=== PATIENT | female | born 2000 | race Caucasian/White ===

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

== ENCOUNTER 2020-08-23 18:11 | Inpatient (IN) | payer BC, OTHER ==
[~2020-08-23] VITALS: Ht 160 cm; Wt 58.9 kg
[2020-08-23] MEDS ORDERED: TOPI25TA10 (18:25)
[2020-08-23] MEDS ORDERED: SERT25TA21 (18:25)
[2020-08-23 20:46] LABS: HEMATOCRIT 38.4 % (36.0-47.0); HEMOGLOBIN 12.1 g/dl (12.0-15.5); MEAN CORPUSCULAR HEMOGLOBIN 25.5 pg (27.0-33.0); MEAN CORPUSCULAR HGB CONC 31.5 g/dl (32.0-36.5); PLATELET COUNT, AUTOMATED 186 10^3/uL (150-450); RED BLOOD COUNT 4.74 10^6/uL (4.00-5.40); WHITE BLOOD COUNT 6.5 10^3/uL (4.0-10.0)
[2020-08-23 21:12] LABS: HCG, SERUM QUALITATIVE NEGATIVE (NEGATIVE)
[2020-08-23 21:15] LABS: AMPHETAMINES LEVEL URINE NEGATIVE (NEGATIVE); BARBITURATES URINE NEGATIVE (NEGATIVE); BENZODIAZEPINES URINE NEGATIVE (NEGATIVE); CANNABINOIDS URINE POSITIVE (NEGATIVE); COCAINE METABOLITE URINE NEGATIVE (NEGATIVE); METHADONE URINE NEGATIVE (NEGATIVE); OPIATES URINE NEGATIVE (NEGATIVE); PHENCYCLIDINE URINE NEGATIVE (NEGATIVE)
[2020-08-23 21:18] LABS: ACETAMINOPHEN LEVEL < 2.0 UG/ML (10.0-30.0); ALBUMIN 3.8 GM/DL (3.2-5.2); ALT/SGPT 13 U/L (12-78); BILIRUBIN,DIRECT < 0.1 MG/DL (0.0-0.2); BILIRUBIN,TOTAL 0.3 MG/DL (0.2-1.0); BLOOD UREA NITROGEN 8 MG/DL (7-18); CARBON DIOXIDE LEVEL 22 MEQ/L (21-32); CHLORIDE LEVEL 113 MEQ/L (98-107); ETHYL ALCOHOL (ETHANOL) < 0.003 % (0.000-0.010); GLOMERULAR FILTRATION RATE > 60.0 (>60); GLUCOSE, FASTING 82 MG/DL (70-100); SODIUM LEVEL 141 MEQ/L (136-145); THYROID STIMULATING HORMONE 0.877 uIU/ML (0.358-3.740); TOTAL PROTEIN 6.8 GM/DL (6.4-8.2)
[2020-08-23] MEDS ORDERED: SERT25TA21 PO (22:03)
[2020-08-23] MEDS ORDERED: TOPI25TA10 PO (22:03)
[2020-08-23] MEDS ORDERED: TOPIRAMATE (TopAMAX) 25 MG TAB PO ONE (22:15)
--- NOTE | 2020-08-24 07:17 | ECGEPIP ---
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
[2020-08-24] MEDS ORDERED: SERTRALINE HCL 25 MG TABLET PO ONE (09:00)
[2020-08-24] MEDS ORDERED: LORazepam 1 MG TAB PO PRN (15:30)
[2020-08-24] MEDS ORDERED: MOM 30ML SUSPENSION UDC PO PRN (15:30)
[2020-08-24] MEDS ORDERED: MAALOX 30 ML SUSP *UDC PO PRN (15:30)
[2020-08-24 16:45] VITALS: BP 109/66
[2020-08-24] MEDS: TOPIRAMATE (TopAMAX) 25 MG TAB PO SCH (20:50)
[2020-08-24] MEDS ORDERED: TOPIRAMATE (TopAMAX) 25 MG TAB PO ONE (21:00)
[2020-08-25 06:32] VITALS: BP 127/66
[2020-08-25] MEDS: busPIRone 5 MG TAB PO SCH ×2 (09:00→20:02)
[2020-08-25] MEDS: IBUPROFEN 400 MG TAB PO PRN (09:01)
[2020-08-25] MEDS: SERTRALINE HCL 25 MG TABLET PO SCH (09:01)
--- NOTE | 2020-08-25 10:27 | HPEPDOC ---
[facility] Medical History & Physical Date of Admission Aug 24, 2020 Date of Service: Aug 25, 2020 History and Physical CHIEF COMPLAINT: Medical H&P for [facility] patient HISTORY OF PRESENT ILLNESS: 20 yo female admitted to [facility] for suicidal ideation, hospitalist consulted for medical co-management. PAST MEDICAL HISTORY: #depression ALLERGIES: Please see below. REVIEW OF SYSTEMS: Negative except as per HPI. HOME MEDICATIONS: Please see below. PHYSICAL EXAMINATION: VITAL SIGNS: See below GENERAL APPEARANCE: NAD, sitting comfortably in chair HEENT: NC/AT, EOMI CARDIOVASCULAR: +S1S2, RRR LUNGS: CTA B/L ABDOMEN: soft, NT, +BS PSYCHIATRIC: AAOx3 LABORATORY DATA: See below. MICROBIOLOGY: Please see below. A/P: 20-year-old female admitted to inpatient mental health unit for suicidal ideation, hospitalist consulted for medical comanagement. #psych/SI - as per primary team Thank you for this consultation. Please re-consult as needed. Vital Signs Vital Signs Date Time Temp Pulse Resp B/P (MAP) Pulse Ox O2 Delivery O2 Flow Rate FiO2 08/25/20 06:32 98.8 90 16 127/66 (86) 08/24/20 16:45 99 Room Air Home Medications Scheduled Sertraline HCl (Sertraline HCl) 25 Mg Tablet, 75 MG PO DAILY Topiramate (Topiramate) 25 Mg Tablet, 25 MG PO QHS Allergies Coded Allergies: No Known Allergies (Unverified , 08/23/20) A-FIB/CHADSVASC A-FIB History Current/History of A-Fib/PAF?: No GILL RODRÍGUEZ MD Aug 25, 2020 10:27
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
[2020-08-25] MEDS: ARIPiprazole 2 MG TAB PO SCH (20:02)
[2020-08-25] MEDS: TOPIRAMATE (TopAMAX) 25 MG TAB PO SCH (20:02)
[2020-08-26 07:24] VITALS: BP 104/53
[2020-08-26] MEDS: SERTRALINE HCL 25 MG TABLET PO SCH (09:22)
[2020-08-26] MEDS: busPIRone 5 MG TAB PO SCH ×2 (09:22→20:51)
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
[2020-08-26 16:10] VITALS: BP 133/75
[2020-08-26] MEDS: TOPIRAMATE (TopAMAX) 25 MG TAB PO SCH (20:50)
[2020-08-26] MEDS: ARIPiprazole 2 MG TAB PO SCH (20:51)
[2020-08-26] MEDS: traZODone 50 MG TAB PO PRN (22:20)
[2020-08-27 06:30] VITALS: BP 136/73
[2020-08-27] MEDS: SERTRALINE HCL 25 MG TABLET PO SCH (08:19)
[2020-08-27] MEDS: busPIRone 5 MG TAB PO SCH ×2 (08:20→21:09)
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
[2020-08-27 16:30] VITALS: BP 114/66
[2020-08-27] MEDS: ARIPiprazole 2 MG TAB PO SCH (21:10)
[2020-08-27] MEDS: TOPIRAMATE (TopAMAX) 25 MG TAB PO SCH (21:10)
[2020-08-28 06:29] VITALS: BP 120/61
[2020-08-28] MEDS: busPIRone 5 MG TAB PO SCH ×2 (09:03→20:36)
[2020-08-28] MEDS: SERTRALINE HCL 25 MG TABLET PO SCH (09:04)
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
[2020-08-28 17:09] VITALS: BP 139/67
[2020-08-28] MEDS: TOPIRAMATE (TopAMAX) 25 MG TAB PO SCH (20:36)
[2020-08-28] MEDS: ARIPiprazole 2 MG TAB PO SCH (20:36)
[2020-08-28] MEDS: traZODone 50 MG TAB PO PRN (22:28)
[2020-08-29 06:50] VITALS: BP 104/59
[2020-08-29] MEDS: busPIRone 5 MG TAB PO SCH ×2 (09:03→20:29)
[2020-08-29] MEDS: SERTRALINE HCL 25 MG TABLET PO SCH (09:03)
[2020-08-29] MEDS: IBUPROFEN 400 MG TAB PO PRN (09:35)
[2020-08-29] MEDS ORDERED: ABIL1TAB13 PO (12:34)
[2020-08-29] MEDS ORDERED: BUSP5TA PO (12:34)
[2020-08-29] MEDS ORDERED: TRAZ-252 PO (12:34)
[2020-08-29] MEDS ORDERED: SERT25TA21 PO (12:34)
[2020-08-29] MEDS ORDERED: TOPI25TA10 PO (12:34)
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
[2020-08-29 17:31] VITALS: BP 122/77
[2020-08-29] MEDS: TOPIRAMATE (TopAMAX) 25 MG TAB PO SCH (20:29)
[2020-08-29] MEDS: ARIPiprazole 2 MG TAB PO SCH (20:29)
[2020-08-29] MEDS: traZODone 50 MG TAB PO PRN (21:08)
[2020-08-30 06:27] VITALS: BP 112/55
[2020-08-30] MEDS: SERTRALINE HCL 25 MG TABLET PO SCH (08:30)
[2020-08-30] MEDS: busPIRone 5 MG TAB PO SCH (08:30)
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
== END 2020-08-30 11:00 | disposition home or self-care (01) | DRG 885 ==
LOC: M ED 18:11 → M ED INP 08-24 15:22 → M PSY 08-24 16:39
PROVIDERS: ADMIT Psychiatry & Neurology Psychiatry; ATTEND Psychiatry & Neurology Psychiatry
DX: F32.1 Major depressive disorder, single episode, moderate (principal); F43.10 Post-traumatic stress disorder, unspecified; F41.9 Anxiety disorder, unspecified; F17.210 Nicotine dependence, cigarettes, uncomplicated; F12.10 Cannabis abuse, uncomplicated; Z91.410 Personal history of adult physical and sexual abuse; Z63.79 Other stressful life events affecting family and household

== ENCOUNTER 2020-09-21 19:18 | Emergency (ER) | payer OTHER ==
[~2020-09-21] VITALS: Ht 160 cm; Wt 59.1 kg
[2020-09-21 19:18] VITALS: BP 106/57
[~2020-09-21 19:18] MED LIST: ABIL1TAB13 PO; BUSP5TA PO; SERT25TA21; SERT25TA21 PO; TOPI25TA10; TOPI25TA10 PO; TRAZ-252 PO
[2020-09-21] MEDS ORDERED: NS 1,000 ML IV ONE (21:00)
[2020-09-21] MEDS ORDERED: ONDANSETRON 4MG/2ML VIAL IV ONE (21:00)
[2020-09-21] MEDS ORDERED: MORPHINE 2 MG/ML 1ML VIAL (J2270) IV ONE (21:00)
[2020-09-21 21:03] LABS: BASO % 0.3 % (0.0-1.0); HEMATOCRIT 37.2 % (36.0-47.0); HEMOGLOBIN 11.8 g/dl (12.0-15.5); LYMPH # 1.3 10^3/uL (1.5-5.0); MEAN CORPUSCULAR HEMOGLOBIN 25.6 pg (27.0-33.0); MEAN CORPUSCULAR HGB CONC 31.7 g/dl (32.0-36.5); MEAN CORPUSCULAR VOLUME 80.7 fl (80.0-96.0); MONO # 0.6 10^3/uL (0.0-0.8); MONO % 8.3 % (0.0-5.0); NEUTROPHILS # 5.6 10^3/uL (1.5-8.5); NEUTROPHILS % 74.1 % (36.0-66.0); PLATELET COUNT, AUTOMATED 155 10^3/uL (150-450); RED BLOOD COUNT 4.61 10^6/uL (4.00-5.40); WHITE BLOOD COUNT 7.5 10^3/uL (4.0-10.0)
[2020-09-21 21:41] LABS: ALBUMIN 3.7 GM/DL (3.2-5.2); BILIRUBIN,DIRECT 0.1 MG/DL (0.0-0.2); BILIRUBIN,TOTAL 0.4 MG/DL (0.2-1.0); TOTAL PROTEIN 6.9 GM/DL (6.4-8.2)
[2020-09-21] MEDS ORDERED: ISOVUE-370 76% 100ML VIAL As Ordered ONE (22:20)
--- NOTE | 2020-09-21 23:34 | REPVR ---
PROCEDURE INFORMATION: Exam: CT Abdomen And Pelvis With Contrast Exam date and time: 09/21/2020 11:03 PM Age: 20 years old Clinical indication: Abdominal pain; Localized; Right lower quadrant (rlq); Additional info: Rlq pain R/O appendicitis TECHNIQUE: Imaging protocol: Computed tomography of the abdomen and pelvis with intravenous contrast. Axial, coronal and sagittal reformatted images were created and reviewed. Radiation optimization: All CT scans at this facility use at least one of these dose optimization techniques: automated exposure control; mA and/or kV adjustment per patient size (includes targeted exams where dose is matched to clinical indication); or iterative reconstruction. Contrast material: ISOVUE 370; Contrast volume: 100 ml; Contrast route: INTRAVENOUS (IV); COMPARISON: CT ABD PELVIS W/O CONTRAST 12/02/2016 4:56 AM FINDINGS: Liver: Unremarkable. Gallbladder and bile ducts: No radiodense gallstones. No biliary ductal dilatation. Pancreas: Unremarkable. Spleen: Unremarkable. Adrenal glands: Normal. No mass. Kidneys and ureters: Right urothelial thickening and enhancement with associated periureteral edema. No radiodense calculi. No hydronephrosis. Stomach and bowel: No bowel wall thickening. No obstruction. No pneumatosis. Appendix: Normal. Intraperitoneal space: Small nonspecific free pelvic fluid, likely physiologic. No organized fluid collection. No free air. Vasculature: Unremarkable. No aneurysm. Lymph nodes: No pathologically enlarged lymph nodes. Urinary bladder: Unremarkable as visualized. Reproductive: Probable involuting right ovarian corpus luteal cyst. Bones/joints: No acute osseous abnormality. Soft tissues: Small, fat containing supraumbilical hernia. IMPRESSION: 1. Findings suggestive of ascending right urinary tract infection, as described above. Correlate with urinalysis. 2. Additional findings, as above. Electronically signed by: Maxx Hogue On 09/21/2020 23:33:54 PM
[2020-09-21] MEDS ORDERED: PHENAZOPYRIDINE 100 MG TAB PO ONE (23:45)
[2020-09-21] MEDS ORDERED: CEPHALEXIN 500 MG CAP PO ONE (23:45)
[2020-09-21] MEDS ORDERED: PYRI1TAB5 PO (23:46)
[2020-09-21] MEDS ORDERED: KEFL500C17 PO (23:46)
== END 2020-09-22 00:04 | disposition home or self-care (01) ==
LOC: M ED 19:18
DX: N39.0 Urinary tract infection, site not specified (principal); F43.10 Post-traumatic stress disorder, unspecified; F32.9 Major depressive disorder, single episode, unspecified; F41.9 Anxiety disorder, unspecified; F17.200 Nicotine dependence, unspecified, uncomplicated; Z79.899 Other long term (current) drug therapy
CPT/HCPCS: 74177; 80047; 80076; 81001; 83690; 85025; 87088; 87186; 96361; 96374; 96375; 99283; J2270; J2405; Q9967

== ENCOUNTER 2020-09-22 15:58 | Emergency (ER) | payer BC, OTHER ==
[~2020-09-22] VITALS: Ht 160 cm; Wt 60.1 kg
[~2020-09-22 15:58] MED LIST changes: +KEFL500C17 PO; +PYRI1TAB5 PO
[2020-09-22] MEDS ORDERED: NS 1,000 ML IV ONE (17:15)
--- NOTE | 2020-09-22 17:47 | REPVR ---
PROCEDURE INFORMATION: Exam: US Retroperitoneal Limited, Kidneys Exam date and time: 09/22/2020 5:40 PM Age: 20 years old Clinical indication: Pain; Other: Flank; Additional info: Right sided flank pain TECHNIQUE: Imaging protocol: Real-time ultrasound of the retroperitoneum with image documentation. Examination was focused on the kidneys. COMPARISON: CT ABD/PEL W/IV CONTRAST ONLY 09/21/2020 10:53 PM FINDINGS: Right kidney: The right kidney measures 11.8 cm in length. Normal echogenicity. Minimal right-sided pelviectasis. No definite hydronephrosis. No nephrolithiasis. Left kidney: The left kidney measures 11 cm in length. Normal echogenicity. No hydronephrosis or stones. Bladder: Decompressed and unremarkable. IMPRESSION: Nonspecific minimal right pelviectasis. No sonographic evidence of nephrolithiasis. Please refer to CT abdomen pelvis performed on 09/21/2020 for additional findings. Electronically signed by: Cj Bradley On 09/22/2020 17:47:05 PM
[2020-09-22 18:14] LABS: BASO % 0.2 % (0.0-1.0); EOS % 0.7 % (0.0-3.0); HEMATOCRIT 36.7 % (36.0-47.0); HEMOGLOBIN 11.5 g/dl (12.0-15.5); LYMPH # 1.7 10^3/uL (1.5-5.0); LYMPH % 29.7 % (24.0-44.0); MEAN CORPUSCULAR HEMOGLOBIN 25.7 pg (27.0-33.0); MEAN CORPUSCULAR HGB CONC 31.3 g/dl (32.0-36.5); MEAN CORPUSCULAR VOLUME 82.1 fl (80.0-96.0); MONO # 0.5 10^3/uL (0.0-0.8); NEUTROPHILS # 3.4 10^3/uL (1.5-8.5); NEUTROPHILS % 60.2 % (36.0-66.0); PLATELET COUNT, AUTOMATED 154 10^3/uL (150-450); RED BLOOD COUNT 4.47 10^6/uL (4.00-5.40); WHITE BLOOD COUNT 5.7 10^3/uL (4.0-10.0)
[2020-09-22 18:44] LABS: ALBUMIN 3.5 GM/DL (3.2-5.2); ALT/SGPT 11 U/L (12-78); BILIRUBIN,DIRECT < 0.1 MG/DL (0.0-0.2); BILIRUBIN,TOTAL 0.3 MG/DL (0.2-1.0); BLOOD UREA NITROGEN 10 MG/DL (7-18); CALCIUM LEVEL 8.8 MG/DL (8.5-10.1); CARBON DIOXIDE LEVEL 23 MEQ/L (21-32); CHLORIDE LEVEL 111 MEQ/L (98-107); CREATININE FOR GFR 0.68 MG/DL (0.55-1.30); GLOMERULAR FILTRATION RATE > 60.0 (>60); GLUCOSE, FASTING 85 MG/DL (70-100); LIPASE 139 U/L (73-393); POTASSIUM SERUM 3.8 MEQ/L (3.5-5.1); SODIUM LEVEL 142 MEQ/L (136-145); TOTAL PROTEIN 6.6 GM/DL (6.4-8.2)
[2020-09-22] MEDS ORDERED: ONDANSETRON 4MG/2ML VIAL IV ONE (18:45)
[2020-09-22] MEDS ORDERED: MORPHINE 2 MG/ML 1ML VIAL (J2270) IV ONE (18:45)
[2020-09-22 19:31] VITALS: BP 133/71
== END 2020-09-22 20:35 | disposition home or self-care (01) ==
LOC: M ED 15:58
DX: N30.00 Acute cystitis without hematuria (principal); F41.9 Anxiety disorder, unspecified; F32.9 Major depressive disorder, single episode, unspecified; F43.10 Post-traumatic stress disorder, unspecified; Z87.448 Personal history of other diseases of urinary system; F17.200 Nicotine dependence, unspecified, uncomplicated; Z79.899 Other long term (current) drug therapy
CPT/HCPCS: 76775; 80048; 80076; 81001; 83605; 83690; 85025; 87040; 87086; 96361; 96374; 96375; 99284; J2270; J2405

== ENCOUNTER → 2020-10-10 | Outpatient (REF) | payer BC, OTHER ==
[2020-10-10 12:33] LABS: BASO % 0.4 % (0.0-1.0); EOS % 0.2 % (0.0-3.0); HEMATOCRIT 38.2 % (36.0-47.0); HEMOGLOBIN 11.8 g/dl (12.0-15.5); LYMPH # 1.9 10^3/uL (1.5-5.0); LYMPH % 40.4 % (24.0-44.0); MEAN CORPUSCULAR HEMOGLOBIN 25.1 pg (27.0-33.0); MEAN CORPUSCULAR HGB CONC 30.9 g/dl (32.0-36.5); MEAN CORPUSCULAR VOLUME 81.3 fl (80.0-96.0); MONO # 0.5 10^3/uL (0.0-0.8); MONO % 10.4 % (0.0-5.0); NEUTROPHILS # 2.3 10^3/uL (1.5-8.5); NEUTROPHILS % 48.4 % (36.0-66.0); PLATELET COUNT, AUTOMATED 188 10^3/uL (150-450); WHITE BLOOD COUNT 4.7 10^3/uL (4.0-10.0)
[2020-10-10 13:06] LABS: ALBUMIN 3.7 GM/DL (3.2-5.2); ALT/SGPT 13 U/L (12-78); BILIRUBIN,TOTAL 0.3 MG/DL (0.2-1.0); BLOOD UREA NITROGEN 13 MG/DL (7-18); CALCIUM LEVEL 9.1 MG/DL (8.5-10.1); CARBON DIOXIDE LEVEL 27 MEQ/L (21-32); CHLORIDE LEVEL 111 MEQ/L (98-107); CHOLESTEROL LEVEL 157 MG/DL (<200); CHOLESTEROL RISK RATIO 3.738 (<5); CREATININE FOR GFR 0.74 MG/DL (0.55-1.30); FREE T4 1.03 NG/DL (0.76-1.46); GLOMERULAR FILTRATION RATE > 60.0 (>60); GLUCOSE, FASTING 81 MG/DL (70-100); HDL CHOLESTEROL 42 MG/DL (>40); LDL CHOLESTEROL 99 MG/DL (<100); NON-HDL-C 115 MG/DL; SODIUM LEVEL 141 MEQ/L (136-145); THYROID STIMULATING HORMONE 0.563 uIU/ML (0.358-3.740); TOTAL PROTEIN 6.9 GM/DL (6.4-8.2); TRIGLYCERIDES LEVEL 80 MG/DL (<150)
[2020-10-10 13:08] LABS: TOTAL 25(OH) VITAMIN D 29.9 NG/ML (30.0-100.0)
== END ==
LOC: M LAB REF 12:01
PROVIDERS: ATTEND Nurse Practitioner Family
DX: Z00.00 Encounter for general adult medical examination without abnormal findings (principal)

== ENCOUNTER 2020-10-17 11:27 | Emergency (ER) | payer BC, OTHER ==
[~2020-10-17] VITALS: Ht 160 cm; Wt 59.4 kg
[~2020-10-17 11:27] MED LIST changes: -CVS1CAP2 PO; -SERT25TA85 PO
[2020-10-17] MEDS ORDERED: CVS1CAP2 PO (11:45)
[2020-10-17] MEDS ORDERED: SERT25TA85 PO (12:23)
[2020-10-17] MEDS ORDERED: ABIL1TAB13 PO (12:23)
[2020-10-17] MEDS ORDERED: TRAZ-252 PO (12:23)
[2020-10-17] MEDS ORDERED: BUSP5TA PO (12:23)
[2020-10-17 12:30] VITALS: BP 108/59
== END 2020-10-17 12:53 | disposition home or self-care (01) ==
LOC: M ED 11:27
DX: Z76.0 Encounter for issue of repeat prescription (principal); F41.9 Anxiety disorder, unspecified; F32.9 Major depressive disorder, single episode, unspecified; F43.10 Post-traumatic stress disorder, unspecified; F17.200 Nicotine dependence, unspecified, uncomplicated; Z79.899 Other long term (current) drug therapy

== ENCOUNTER → 2020-10-17 | Outpatient (REF) | payer BC, OTHER ==
[~2020-10-17] MED LIST changes: +CVS1CAP2 PO; +SERT25TA85 PO
[2020-10-17 19:02] LABS: APPEARANCE, URINE HAZY (CLEAR); BACTERIA, URINE AUTO NEGATIVE (NEGATIVE); BILIRUBIN, URINE AUTO NEGATIVE (NEGATIVE); BLOOD, URINE BLOOD NEGATIVE (NEGATIVE); COLOR, URINE YELLOW (YELLOW); GLUCOSE, URINE (UA) AUTO NEGATIVE (NEGATIVE); KETONE, URINE AUTO NEGATIVE (NEGATIVE); LEUKOCYTE ESTERASE, URINE AUTO NEGATIVE (NEGATIVE); MUCUS, URINE MODERATE (NEGATIVE); NITRITE, URINE AUTO NEGATIVE (NEGATIVE); PROTEIN, URINE AUTO NEGATIVE (NEGATIVE); RBC, URINE AUTO 1 /HPF (0-3); SPECIFIC GRAVITY URINE AUTO 1.023 (1.002-1.035); SQUAMOUS EPITHELIAL CELL UR AU 13 /HPF (0-6); UROBILINOGEN, URINE AUTO 0.2 mg/dL (0.0-2.0); WBC, URINE AUTO 1 /HPF (0-3)
== END ==
LOC: M LAB REF 16:40
PROVIDERS: ATTEND Nurse Practitioner Family
DX: R30.9 Painful micturition, unspecified (principal)

== ENCOUNTER 2021-03-06 15:25 | Emergency (ER) | payer BC, OTHER ==
[~2021-03-06] VITALS: Ht 160 cm; Wt 65.8 kg
[~2021-03-06 15:25] MED LIST changes: +CVS1CAP2 PO; +SERT25TA85 PO
[2021-03-06] MEDS ORDERED: NS 1,000 ML IV ONE (17:15)
[2021-03-06] MEDS ORDERED: ONDANSETRON 4MG/2ML VIAL IV ONE (17:15)
[2021-03-06] MEDS ORDERED: DICYCLOMINE 10 MG CAP PO ONE (17:15)
[2021-03-06] MEDS ORDERED: KETOROLAC 30 MG/ML 1ML VIAL IV ONE (17:15)
[2021-03-06] MEDS ORDERED: TRAZ-189 (18:05)
[2021-03-06] MEDS ORDERED: DULO1CAP6 (18:05)
[2021-03-06] MEDS ORDERED: ARIP1TAB2 (18:05)
[2021-03-06] MEDS ORDERED: PREG50CA2 (18:05)
[2021-03-06] MEDS ORDERED: MELO15TA28 (18:05)
[2021-03-06 18:13] LABS: BASO % 0.3 % (0.0-1.0); EOS # 0.1 10^3/uL (0.0-0.5); EOS % 0.9 % (0.0-3.0); HEMATOCRIT 38.8 % (36.0-47.0); HEMOGLOBIN 12.5 g/dl (12.0-15.5); LYMPH # 2.2 10^3/uL (1.5-5.0); LYMPH % 38.3 % (24.0-44.0); MEAN CORPUSCULAR HEMOGLOBIN 26.5 pg (27.0-33.0); MEAN CORPUSCULAR HGB CONC 32.2 g/dl (32.0-36.5); MEAN CORPUSCULAR VOLUME 82.4 fl (80.0-96.0); MONO # 0.4 10^3/uL (0.0-0.8); MONO % 6.8 % (2.0-8.0); NEUTROPHILS # 3.1 10^3/uL (1.5-8.5); NEUTROPHILS % 53.4 % (36.0-66.0); PLATELET COUNT, AUTOMATED 186 10^3/uL (150-450); RED BLOOD COUNT 4.71 10^6/uL (4.00-5.40); WHITE BLOOD COUNT 5.7 10^3/uL (4.0-10.0)
[2021-03-06 18:37] LABS: ALBUMIN 4.2 GM/DL (3.2-5.2); BILIRUBIN,DIRECT 0.1 MG/DL (0.0-0.2); BILIRUBIN,TOTAL 0.4 MG/DL (0.2-1.0); TOTAL PROTEIN 7.3 GM/DL (6.4-8.2)
--- NOTE | 2021-03-06 19:07 | REP ---
INDICATION: NVD, V all PO. COMPARISON: None. TECHNIQUE: Supine and erect views of the abdomen, frontal view chest. FINDINGS: There is no free air or obstruction. No significantly dilated bowel loops are seen. There are phleboliths in the pelvis. The visualized osseous structures are unremarkable. No infiltrate is seen in either lung. The heart and mediastinum are within normal limits. IMPRESSION: Negative abdominal series. <Electronically signed by Merritt Flores > 03/06/21 [id number]
[2021-03-06] MEDS ORDERED: METOCLOPRAMIDE INJ 10MG/2ML VIAL (J2765 PER 1) IV ONE (20:00)
[2021-03-06] MEDS ORDERED: PANTOPRAZOLE 40MG TAB (PROTONIX) PO ONE (20:05)
[2021-03-06] MEDS ORDERED: ONDA4TAB6 PO (20:05)
[2021-03-06 20:20] VITALS: BP 105/63
== END 2021-03-06 20:25 | disposition home or self-care (01) ==
LOC: M ED 15:25
DX: R11.2 Nausea with vomiting, unspecified (principal); R19.7 Diarrhea, unspecified; R51.9 Headache, unspecified; D64.9 Anemia, unspecified; F17.200 Nicotine dependence, unspecified, uncomplicated; Z79.899 Other long term (current) drug therapy
CPT/HCPCS: 74021; 80047; 80076; 83690; 84702; 85025; 96361; 96374; 96375; 99284; J1885; J2405; J2765

== ENCOUNTER 2021-03-16 15:26 | Emergency (ER) | payer BC, OTHER ==
[~2021-03-16] VITALS: Ht 160 cm; Wt 64.2 kg
[~2021-03-16 15:26] MED LIST changes: +ARIP1TAB2; +DULO1CAP6; +MELO15TA28; +ONDA4TAB6 PO; +PREG50CA2; +TRAZ-189
[2021-03-16 15:27] VITALS: BP 128/81
[2021-03-16] MEDS ORDERED: GABA-282 (15:43)
[2021-03-16] MEDS ORDERED: SERT25TA21 (15:43)
[2021-03-17] MEDS ORDERED: PANT40TA29 PO (15:05)
[2021-03-17] MEDS ORDERED: CARA1TAB6 PO (15:05)
== END 2021-03-16 18:15 | disposition left against medical advice (07) ==
LOC: M ED 15:26
DX: Z53.21 Procedure and treatment not carried out due to patient leaving prior to being seen by health care provider (principal)

== ENCOUNTER 2021-03-17 10:08 | Emergency (ER) | payer BC, OTHER ==
[~2021-03-17] VITALS: Ht 160 cm; Wt 64.7 kg
[~2021-03-17 10:08] MED LIST changes: +GABA-282
[2021-03-17] MEDS ORDERED: NS 1,000 ML IV ONE (12:10)
[2021-03-17] MEDS ORDERED: PROMETHAZINE INJ 25 MG/ML VIAL (J2550) IV ONE (12:20)
[2021-03-17 13:30] LABS: BASO % 0.4 % (0.0-1.0); EOS % 0.4 % (0.0-3.0); HEMOGLOBIN 13.9 g/dl (12.0-15.5); LYMPH # 2.9 10^3/uL (1.5-5.0); LYMPH % 36.3 % (24.0-44.0); MEAN CORPUSCULAR HEMOGLOBIN 27.1 pg (27.0-33.0); MEAN CORPUSCULAR HGB CONC 32.3 g/dl (32.0-36.5); MONO # 0.5 10^3/uL (0.0-0.8); MONO % 6.3 % (2.0-8.0); NEUTROPHILS # 4.6 10^3/uL (1.5-8.5); NEUTROPHILS % 56.1 % (36.0-66.0); PLATELET COUNT, AUTOMATED 205 10^3/uL (150-450); RED BLOOD COUNT 5.12 10^6/uL (4.00-5.40); WHITE BLOOD COUNT 8.1 10^3/uL (4.0-10.0)
--- NOTE | 2021-03-17 13:46 | REP ---
INDICATION: syncope. COMPARISON: None. TECHNIQUE: Helical scanning is acquired. 5 mm axial images were reformatted. Coronal MPR images were generated. FINDINGS: Bone window settings demonstrate an intact bony calvarium. There is no evidence of skull fracture or incidental bony calvarial lesion. There are mucous retention cysts in the left side of the frontal sinus and in the left side of the sphenoid sinus. The visualized paranasal sinuses appear otherwise clear. No intraorbital abnormality is seen. On soft tissue window setting images; the lateral, third, and fourth ventricles are normal in size and position. Flores-white differentiation pattern is normal above and below the tentorium. There are is no evidence of intracranial hemorrhage. No mass, edema, infarction, or midline shift is seen. No extra-axial fluid collection is appreciated. IMPRESSION: Mucous retention cyst in the left frontal and left sphenoid sinuses. Otherwise normal noncontrast brain CT.. <Electronically signed by Abhishek Watson > 03/17/21 [id number]
--- NOTE | 2021-03-17 13:48 | REP ---
INDICATION: syncope/fall. COMPARISON: None. TECHNIQUE: Helical scanning is acquired and overlapping 2 mm high resolution axial images were generated and reviewed at bone and soft tissue window settings. Coronal and sagittal multiplanar re-formations images are generated. FINDINGS: There is no evidence of cervical spine element fracture. No skull base fracture is seen. Cervical vertebral body heights are preserved. Alignment is normal. Facet joints are normally aligned bilaterally at each cervical level on multiplanar re-formations images. There is no evidence of intraspinal or paraspinal hematoma. No extra vertebral abnormality is seen. There is straightening of the normal cervical lordosis. There is a granulomatous calcification in the right lung apex. IMPRESSION: Negative CT study of the cervical spine without contrast. No fracture seen. <Electronically signed by Abhishek Watson > 03/17/21 [id number]
[2021-03-17 14:01] LABS: ALBUMIN 4.4 GM/DL (3.2-5.2); ALT/SGPT 19 U/L (12-78); BILIRUBIN,TOTAL 0.5 MG/DL (0.2-1.0); BLOOD UREA NITROGEN 21 MG/DL (7-18); CALCIUM LEVEL 10.3 MG/DL (8.5-10.1); CARBON DIOXIDE LEVEL 25 MEQ/L (21-32); CHLORIDE LEVEL 104 MEQ/L (98-107); CREATININE FOR GFR 0.75 MG/DL (0.55-1.30); GLOMERULAR FILTRATION RATE > 60.0 (>60); GLUCOSE, FASTING 74 MG/DL (70-100); POTASSIUM SERUM 3.7 MEQ/L (3.5-5.1); SODIUM LEVEL 137 MEQ/L (136-145); THYROID STIMULATING HORMONE 0.542 uIU/ML (0.358-3.740); TOTAL PROTEIN 7.5 GM/DL (6.4-8.2)
[2021-03-17 14:14] LABS: AMPHETAMINES LEVEL URINE NEGATIVE (NEGATIVE); BARBITURATES URINE NEGATIVE (NEGATIVE); BENZODIAZEPINES URINE NEGATIVE (NEGATIVE); CANNABINOIDS URINE POSITIVE (NEGATIVE); COCAINE METABOLITE URINE NEGATIVE (NEGATIVE); METHADONE URINE NEGATIVE (NEGATIVE); OPIATES URINE NEGATIVE (NEGATIVE); PHENCYCLIDINE URINE NEGATIVE (NEGATIVE)
--- NOTE | 2021-03-17 14:39 | REP ---
INDICATION: Abdominal Pain. COMPARISON: 03/06/2021. TECHNIQUE: Supine and erect views of the abdomen, frontal view chest. FINDINGS: There is no free air or obstruction. No dilated bowel loops are seen. There are multiple phleboliths again seen in the pelvis. The visualized osseous structures are unremarkable. There is no acute infiltrate in either lung. The heart and mediastinum are within normal limits. IMPRESSION: Negative abdominal series. <Electronically signed by Merritt Flores > 03/17/21 [id number]
[2021-03-17] MEDS ORDERED: CARA1TAB6 PO (15:05)
[2021-03-17] MEDS ORDERED: PANT40TA29 PO (15:05)
[2021-03-17 15:48] VITALS: BP 124/70
--- NOTE | 2021-03-17 19:06 | ECGEPIP ---
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
--- NOTE | 2021-03-19 08:37 | ED PDOC ---
Post-Departure Follow-Up radiology reopprt faced to [facility] Deanna Agustin MD March 19, 2021 08:37
== END 2021-03-17 15:50 | disposition home or self-care (01) ==
LOC: M ED 10:08
DX: S09.90XA Unspecified injury of head, initial encounter (principal); W19.XXXA Unspecified fall, initial encounter; Y92.9 Unspecified place or not applicable; Y93.9 Activity, unspecified; Y99.9 Unspecified external cause status; T40.7X1A Poisoning by cannabis (derivatives), accidental (unintentional), initial encounter; R11.2 Nausea with vomiting, unspecified; R55 Syncope and collapse; J34.1 Cyst and mucocele of nose and nasal sinus; R11.15 Cyclical vomiting syndrome unrelated to migraine; D64.9 Anemia, unspecified; F43.10 Post-traumatic stress disorder, unspecified; F41.9 Anxiety disorder, unspecified; F32.9 Major depressive disorder, single episode, unspecified; F17.200 Nicotine dependence, unspecified, uncomplicated; Z79.899 Other long term (current) drug therapy

== ENCOUNTER 2021-06-02 13:36 | Emergency (ER) | payer BC, OTHER ==
[~2021-06-02] VITALS: Ht 162.6 cm; Wt 65.9 kg
[~2021-06-02 13:36] MED LIST changes: -ARIP1TAB2; +ARIP1TAB43; +CARA1TAB6 PO; +PANT40TA29 PO
[2021-06-02] MEDS ORDERED: NS 1,000 ML IV ONE (16:10)
[2021-06-02] MEDS ORDERED: KETOROLAC 30 MG/ML 1ML VIAL IV ONE (16:10)
[2021-06-02] MEDS ORDERED: ONDANSETRON 4MG/2ML VIAL IV ONE (16:10)
--- NOTE | 2021-06-02 17:16 | REP ---
INDICATION: ruq pain. COMPARISON: Comparison CT study abdomen pelvis September 21, 2020.. TECHNIQUE: Right upper quadrant sonography. FINDINGS: Scanning through the right upper quadrant of the abdomen demonstrates a normal sized, thin-walled gallbladder without evidence of stone or polyp. Common bile duct is normal measuring 0.3 cm in greatest diameter. No focal liver lesion is seen. Liver size is normal. No pancreatic abnormality is observed. No right renal abnormality is seen. There is no evidence of ascites. The right kidney measures 11.6 x 4.8 x 4.7 cm. IMPRESSION: Negative right upper quadrant sonography. <Electronically signed by Abhishek Watson > 06/02/21 [id number]
[2021-06-02 17:34] LABS: BASO % 0.3 % (0.0-1.0); EOS % 0.3 % (0.0-3.0); HEMATOCRIT 41.4 % (36.0-47.0); HEMOGLOBIN 13.4 g/dl (12.0-15.5); LYMPH # 2.2 10^3/uL (1.5-5.0); LYMPH % 29.4 % (24.0-44.0); MEAN CORPUSCULAR HEMOGLOBIN 26.6 pg (27.0-33.0); MEAN CORPUSCULAR HGB CONC 32.4 g/dl (32.0-36.5); MEAN CORPUSCULAR VOLUME 82.1 fl (80.0-96.0); MONO # 0.5 10^3/uL (0.0-0.8); MONO % 6.1 % (2.0-8.0); NEUTROPHILS # 4.8 10^3/uL (1.5-8.5); NEUTROPHILS % 63.5 % (36.0-66.0); PLATELET COUNT, AUTOMATED 181 10^3/uL (150-450); RED BLOOD COUNT 5.04 10^6/uL (4.00-5.40); WHITE BLOOD COUNT 7.6 10^3/uL (4.0-10.0)
[2021-06-02] MEDS ORDERED: ISOVUE-370 76% 100ML VIAL As Ordered ONE (17:41)
[2021-06-02 18:02] LABS: ALBUMIN 4.4 GM/DL (3.2-5.2); BILIRUBIN,DIRECT 0.1 MG/DL (0.0-0.2); BILIRUBIN,TOTAL 0.5 MG/DL (0.2-1.0); TOTAL PROTEIN 7.9 GM/DL (6.4-8.2)
--- NOTE | 2021-06-02 18:12 | REPVR ---
PROCEDURE INFORMATION: Exam: CT Abdomen And Pelvis With Contrast Exam date and time: 06/02/2021 5:24 PM Age: 21 years old Clinical indication: Abdominal pain; Additional info: Ruq pain TECHNIQUE: Imaging protocol: Computed tomography of the abdomen and pelvis with contrast. Radiation optimization: All CT scans at this facility use at least one of these dose optimization techniques: automated exposure control; mA and/or kV adjustment per patient size (includes targeted exams where dose is matched to clinical indication); or iterative reconstruction. Contrast material: ISOVUE 370; Contrast volume: 100 ml; Contrast route: INTRAVENOUS (IV); COMPARISON: CT ABD/PEL W/IV CONTRAST ONLY 09/21/2020 10:53 PM FINDINGS: Lungs: No suspicious mass or airspace process in the visualized lung bases. Liver: Liver appears normal with no focal abnormality. Gallbladder and bile ducts: Gallbladder is present and shows no evidence of gallstone. Pancreas: Pancreas appears normal. No focal mass or peripancreatic inflammation. Spleen: Spleen appears homogeneous without focal mass. Adrenal glands: Adrenal glands are normal in appearance. Kidneys and ureters: Kidneys appear normal, with no stone, solid mass or hydronephrosis. Stomach and bowel: No evidence of small bowel obstruction. Terminal ileum has normal appearance. No evidence of acute diverticulitis. Appendix: Normal caliber appendix is identified, with no adjacent inflammation. Intraperitoneal space: No pneumoperitoneum. Trace free fluid is present in the pelvis. Vasculature: No aortic aneurysm. Main portal and splenic veins enhance normally. Lymph nodes: No enlarged lymph nodes. Urinary bladder: Urinary bladder appears normal. Reproductive: Probable involuting 3 cm left ovarian cyst. Bones/joints: Bony structures show no acute fracture or destructive process. Soft tissues: Fat containing umbilical hernia is present. No concerning focal abnormality of the extra-abdominal and pelvic soft tissues. IMPRESSION: 1. No explanation for acute right upper quadrant pain. 2. Probable involuting 3 cm LEFT ovarian cyst Electronically signed by: Deven Bliss On 06/02/2021 18:12:06 PM
[2021-06-02] MEDS ORDERED: KETO10TAB PO (18:41)
[2021-06-02] MEDS ORDERED: ONDA4TAB6 PO (18:41)
[2021-06-02 19:17] VITALS: BP 110/79
== END 2021-06-02 19:37 | disposition home or self-care (01) ==
LOC: M ED 13:36
DX: R10.11 Right upper quadrant pain (principal); R51.9 Headache, unspecified; D64.9 Anemia, unspecified; M54.9 Dorsalgia, unspecified; F41.9 Anxiety disorder, unspecified; F32.9 Major depressive disorder, single episode, unspecified; F43.10 Post-traumatic stress disorder, unspecified; F17.290 Nicotine dependence, other tobacco product, uncomplicated; F12.10 Cannabis abuse, uncomplicated; Z79.899 Other long term (current) drug therapy
CPT/HCPCS: 74177; 76705; 80047; 80076; 81001; 83690; 84702; 85025; 96361; 96374; 96375; 99284; J1885; J2405; Q9967

== ENCOUNTER 2021-06-12 11:52 | Emergency (ER) | payer BC, OTHER ==
[~2021-06-12] VITALS: Ht 160 cm; Wt 64.2 kg
[~2021-06-12 11:52] MED LIST changes: +KETO10TAB PO
[2021-06-12 11:53] VITALS: BP 108/65
== END 2021-06-12 19:56 | disposition left against medical advice (07) ==
LOC: M ED 11:52
DX: Z53.21 Procedure and treatment not carried out due to patient leaving prior to being seen by health care provider (principal)

== ENCOUNTER → 2021-08-23 | Outpatient (CLI) | payer BC, OTHER ==
--- NOTE | 2021-08-23 10:54 | REP ---
INDICATION: RUQ ABD PAIN. COMPARISON: None TECHNIQUE/RADIOTRACER AND DOSE: FOLLOWING THE INTRAVENOUS ADMINISTRATION OF 6.1 MCI TECHNETIUM 99 M-MEBROFENIN, MULTIPLE IMAGES OF THE RIGHT UPPER QUADRANT ARE PERFORMED FOR 60 MINUTES. NEXT 8 OZ OF ENSURE ENLIVE IS INGESTED AND FURTHER IMAGING IS PERFORMED FOR 65 MINUTES. FINDINGS: THE GALLBLADDER IS VISUALIZED AT 10 MINUTES POST INJECTION. THERE IS BILIARY TO BOWEL TRANSIT AT 25MINUTES POST INJECTION. THERE IS NO SCINTIGRAPHIC EVIDENCE OF CHOLECYSTITIS. GALLBLADDER EJECTION FRACTION IS CALCULATED TO BE 91% WHICH IS NORMAL. IMPRESSION: NORMAL GALLBLADDER EJECTION FRACTION. <Electronically signed by Mreritt Flores > 08/23/21 [id number]
== END ==
LOC: M RAD 07:14
PROVIDERS: ATTEND Surgery
DX: R10.11 Right upper quadrant pain (principal)
CPT/HCPCS: 78227; A9537

== ENCOUNTER 2022-05-16 10:02 | Emergency (ER) | payer BC, OTHER ==
[~2022-05-16] VITALS: Ht 160 cm; Wt 54.5 kg
[2022-05-16] MEDS ORDERED: REXU1TAB3 (10:12)
[2022-05-16] MEDS ORDERED: PREG200C (10:12)
[2022-05-16] MEDS ORDERED: TOPI50TA9 (10:12)
[2022-05-16 12:06] LABS: BASO % 0.4 % (0.0-1.0); EOS # 0.1 10^3/uL (0.0-0.5); EOS % 1.1 % (0.0-3.0); HEMATOCRIT 39.9 % (36.0-47.0); HEMOGLOBIN 12.7 g/dl (12.0-15.5); LYMPH # 1.5 10^3/uL (1.5-5.0); LYMPH % 27.3 % (24.0-44.0); MEAN CORPUSCULAR HEMOGLOBIN 27.7 pg (27.0-33.0); MEAN CORPUSCULAR HGB CONC 31.8 g/dl (32.0-36.5); MEAN CORPUSCULAR VOLUME 87.1 fl (80.0-96.0); MONO # 0.3 10^3/uL (0.0-0.8); MONO % 6.1 % (2.0-8.0); NEUTROPHILS # 3.6 10^3/uL (1.5-8.5); NEUTROPHILS % 64.7 % (36.0-66.0); PLATELET COUNT, AUTOMATED 168 10^3/uL (150-450); RED BLOOD COUNT 4.58 10^6/uL (4.00-5.40); WHITE BLOOD COUNT 5.6 10^3/uL (4.0-10.0)
[2022-05-16 12:20] LABS: INR 1.04
[2022-05-16 12:43] LABS: ALBUMIN 3.7 GM/DL (3.2-5.2); ALT/SGPT 13 U/L (12-78); BILIRUBIN,DIRECT < 0.1 MG/DL (0.0-0.2); BILIRUBIN,TOTAL 0.4 MG/DL (0.2-1.0); LIPASE 188 U/L (73-393); TOTAL PROTEIN 6.3 GM/DL (6.4-8.2)
[2022-05-16] MEDS ORDERED: PRED10TA2 PO (13:49)
[2022-05-16 13:58] VITALS: BP 113/68
== END 2022-05-16 14:00 | disposition home or self-care (01) ==
LOC: M ED 10:02
DX: M94.0 Chondrocostal junction syndrome [Tietze] (principal); F17.200 Nicotine dependence, unspecified, uncomplicated